=== PATIENT | female | born 1995 | race African-American/Black ===

== ENCOUNTER 2017-11-11 09:46 | Emergency (ER) | payer MEDICAID, OTHER ==
[2017-11-11] MEDS ORDERED: Ondansetron ODT 4 MG TAB ONE (10:12)
[2017-11-11 11:02] LABS: Bilirubin Negative (Negative); Blood, Urine Negative (Negative); Clarity CLEAR (Clear); Glucose, Urine (Dipstick) Negative (Negative); Leukocyte Small (Negative); Nitrite Negative (Negative); Protein, Urine (Dipstick) Trace mg/dL (Neg-Trace)
[2017-11-11 11:05] LABS: Bacteria/HPF None Seen HPF (None Seen); Pathc Cast-AUWi Flag 0.87 (0-2.49)
[2017-11-11 11:21] LABS: Hyaline Casts/LPF 0-3 HYALINE CAST LPF (0-3 Hyaline)
[2017-11-11 11:22] LABS: Renal Epithelial None Seen HPF (0-3); Transitional Epithelial NONE SEEN HPF (0-3)
[2017-11-11 11:50] LABS: #Eosinphils 0.2 thou/uL (0.0-0.7); Mean Corpuscular HGB CONC 34.7 g/dL (32.0-36.0); Mean Corpuscular Hemoglobin 34.6 pg (27.0-31.0); Mean Platelet Volume 8.2 fL (7.4-10.4)
[2017-11-11 12:02] LABS: #Lymphocytes 1.1 thou/uL (1.20-3.40); #Monocytes 0.6 thou/uL (0.11-0.59); #Neutrophils 4.3 thou/uL (1.40-6.50); %Basophils 0.7 % (0.0-1.0); %Eosinophils 2.7 % (0.0-10.0); %Neutrophils 69.7 % (42.0-75.0); Hemoglobin 12.8 g/dL (12.0-16.0); Mean Corpuscular Volume 99.7 fL (78.0-98.0); Platelet Count 242 thou/uL (130-400); Red Blood Cell (RBC) Count 3.68 mill/uL (4.20-5.40); White Blood Cell (WBC) Count 6.2 thou/uL (4.8-10.8)
--- NOTE | 2017-11-11 13:42 | ULT ---
TRANSABDOMINAL AND TRANSVAGINAL PELVIC ULTRASOUND WITH DOPPLER: DATE: 11/11/17. PROVIDED CLINICAL HISTORY: Pelvic pain. FINDINGS: The uterus measures about 8.7 x 6 x 7.1 cm and demonstrates a single live intrauterine gestation, 8 w eeks 0 days by crown-rump length. heart tones of 162 b.p.m. documented. There is no evidence for perigestational hemorrhage. Right and left ovaries demonstrate no significant abnormality. Color Doppler and spectral analysis o f the ovarian waveforms demonstrate normal flow bilaterally. There is no evidence for free pelvic fl uid. IMPRESSION: Single live intrauterine gestation. POS: [facility] [place]
== END 2017-11-11 13:49 | disposition home or self-care (01) ==
LOC: ERS 09:46
DX: O21.9 Vomiting of pregnancy, unspecified (principal); F32.9 Major depressive disorder, single episode, unspecified; F17.210 Nicotine dependence, cigarettes, uncomplicated; Z3A.01 Less than 8 weeks gestation of pregnancy
CPT/HCPCS: 36415; 76856; 81001; 85025; 86900; 86901; 87086; 93976; 96360; 96361; Q0162

== ENCOUNTER 2017-12-05 09:21 | Emergency (ER) | payer MEDICAID ==
[2017-12-05 10:21] LABS: #Eosinphils 0.1 thou/uL (0.0-0.7); #Lymphocytes 0.5 thou/uL (1.20-3.40); #Monocytes 0.3 thou/uL (0.11-0.59); #Neutrophils 2.9 thou/uL (1.40-6.50); %Basophils 0.5 % (0.0-1.0); %Eosinophils 2.1 % (0.0-10.0); %Lymphocytes 13.7 % (21.0-51.0); %Neutrophils 76.8 % (42.0-75.0); Hemoglobin 15.1 g/dL (12.0-16.0); Mean Corpuscular Hemoglobin 33.4 pg (27.0-31.0); Mean Corpuscular Volume 98.3 fL (78.0-98.0); Mean Platelet Volume 7.5 fL (7.4-10.4); Platelet Count 244 thou/uL (130-400); RBC Distribution Width 10.8 % (11.5-14.5); Red Blood Cell (RBC) Count 4.53 mill/uL (4.20-5.40); White Blood Cell (WBC) Count 3.8 thou/uL (4.8-10.8)
[2017-12-05] MEDS ORDERED: Ondansetron HCl/PF 4 MG/2 ML Vial ONE (10:23)
[2017-12-05 10:40] LABS: ALT (SGPT) 27 U/L (8-55); AST (SGOT) 25 U/L (5-34); Albumin 4.9 g/dL (3.5-5.0); Alkaline Phosphatase 50 U/L (40-150); Anion Gap 14 mmol/L (10-20); BUN (Urea Nitrogen) 11 mg/dL (7.0-18.7); Bilirubin, Total 0.8 mg/dL (0.2-1.2); Calc. Creatinine Clearance 0 mL/min (70-130); Calcium 10.1 mg/dL (7.8-10.44); Carbon Dioxide 24 mmol/L (22-29); Chloride 100 mmol/L (98-107); Estimated GFR-MDRD Greater than 90; Globulin 4.2 g/dL (2.4-3.5); Glucose 89 mg/dL (70-105); Potassium 3.6 mmol/L (3.5-5.1); Protein, Total 9.1 g/dL (6.0-8.3); Sodium 134 mmol/L (136-145)
[2017-12-05 12:31] LABS: Bilirubin Negative (Negative); Blood, Urine Negative (Negative); Clarity CLEAR (Clear); Glucose, Urine (Dipstick) Negative (Negative); Leukocyte Small (Negative); Nitrite Negative (Negative); Protein, Urine (Dipstick) Negative (Neg-Trace); Specific Gravity, Urine 1.028 (1.002-1.036); pH, Urine 5.5 (5.0-9.0)
[2017-12-05 12:33] LABS: Bacteria/HPF None Seen HPF (None Seen); Hyaline Casts/LPF 7-10 HYALINE CAST LPF (0-3 Hyaline)
== END 2017-12-05 13:30 | disposition home or self-care (01) ==
LOC: ERS 09:21
DX: O21.9 Vomiting of pregnancy, unspecified (principal); O99.89 Other specified diseases and conditions complicating pregnancy, childbirth and the puerperium; R55 Syncope and collapse; O99.331 Smoking (tobacco) complicating pregnancy, first trimester; O99.341 Other mental disorders complicating pregnancy, first trimester; Z3A.11 11 weeks gestation of pregnancy
CPT/HCPCS: 80053; 81003; 81015; 85025; 96361; 96374; J2405

== ENCOUNTER 2018-06-06 09:10 | Day surgery (SDC) | payer OTHER ==
--- NOTE | 2018-06-06 09:46 | PDOC.LDHP ---
Labor and Delivery H&P HPI: HPI: 23 yo at 37.2 wks presents for eval of pelvic pressure, back pain. PCP is Dr. Doherty. Patients states she has been having sharp low back pain isolated to the center of her back for about 3 days. Today she started to have some supra -pubic pressure which brought her in. She denies feeling contractions, the pain is constant. Made worse with standing up and moving. No burning or blood with urination. Mild pink discharge, denies vaginal itching. Did have positive chlamydia earlier in the , states it was treated. Patient denies ROM. Does feel baby moving. records are unavailable at this time, hx taken from patient History: OB hx: x2 at term, uncomplicated [employer] HX: + pap in 2016, repeat was NILM PMH: depression PSH: negative All: NKDA Meds: PNV Soc Hx: denies alcohol, drugs, occasionally smokes cigars Fm Hx: HTN in mom REVIEW OF SYSTEMS: Gen: no fever, chills, or sweats Neuro: no numbness/tingling, no weakness, denies headache Eyes: no visual changes ENT: no hearing changes, no sore throat, no runny nose Resp: no cough, no SOB, no wheeze Card: denies chest pain, no palpitations GI: no N/V/D, see hpi : no dysuria, no hematuria, MSK: no myalgias, no joint pain/stiffness Heme: no easy bruising/bleeding Skin: no rash, no erythema PHYSICAL EXAMINATION: General: NAD, alert and oriented x3 HEENT: EOMI, normal sclera, oropharynx without erythema or exudate Neck: Supple. Full ROM. Heart/Cardiovascular System: RRR, Cap refill < 3 seconds, no rub, no murmur Lungs/Respiratory System: clear to auscultation bilaterally. No increased work of breathing. Room air. Abdomen/Gastro-Intestinal System: normal bowel sounds, Gravid Extremeties: Warm extremities. No cyanosis or edema. No CVA tenderness. + suprapubic tenderness Neuro: No gross deficits appreciated. CN 2-12 grossly intact Psychiatry: Awake, Alert and cooperative with exam Skin/ Integumentory: No lesions, rashes, or ulcers Musculoskeletal: Full ROM [employer]: no external lesions SVE: 4/50/-2 at 1010 Allergies/Adverse Reactions: Allergies Allergy/AdvReac Type Severity Reaction Status Date / Time No Known Allergies Allergy Verified 06/06/18 09:56 - Physical Exam FHT: category 1 - Plan -: A/P: 23 yo at 37.2 wks by stated LESLIE of 06/25/18 # Labor r/o - 2cm in office a week ago, /2 today - not feeling cxns - will monitor and re-check - Cat 1 strip: accels present, no decels, cxns irregular, moderate variability # Suprapubic pressure - check UA Addendum - Attending - Attending Attestation Date/Time: 06/06/18 1210 I personally evaluated the patient and discussed the management with Dr. Khan. I agree with the History, Examination, Assessment and Plan documented above.
[2018-06-06 09:55] VITALS: BP 105/66; TEMP 98.3; BMI 26.4
[2018-06-06] MEDS ORDERED: Acetaminophen 325 MG TAB PO SCH (10:15)
[2018-06-06 11:10] LABS: Bilirubin Negative (Negative); Blood, Urine Negative (Negative); Clarity CLEAR (Clear); Glucose, Urine (Dipstick) Negative (Negative); Leukocyte Moderate (Negative); Nitrite Negative (Negative); Protein, Urine (Dipstick) Negative (Neg-Trace); Specific Gravity, Urine 1.018 (1.002-1.036); pH, Urine 6.5 (5.0-9.0)
[2018-06-06 11:13] LABS: Bacteria/HPF None Seen HPF (None Seen); Hyaline Casts/LPF 0-3 HYALINE CAST LPF (0-3 Hyaline); Pathc Cast-AUWi Flag 0.54 (0-2.49); RBC/HPF 0-3 HPF (0-3); Squamous Epithelial 0-3 HPF (0-3)
[2018-06-06 11:15] LABS: Urine Culture Reflex Yes Yes
--- NOTE | 2018-06-06 12:09 | PDOC.EVN ---
Event Note - Event Note Event Note: Rechecked patient no change from 2 hours ago patient lives 20 minutes away and feels comfortable to go home discussed reasons to return to triage Patient's back pain is improved with tylenol Contractions are irregular and not getting stronger Will send patient home to f/u outpt or return to triage as needed. Addendum - Attending - Attending Attestation Date/Time: 06/06/18 1212 I personally evaluated the patient and discussed the management with Dr. Khan. I agree with the History, Examination, Assessment and Plan documented above See my additional note..
--- NOTE | 2018-06-06 12:10 | PDOC.EVN ---
Event Note - Event Note Event Note: Exam repeated. SVE by me is 3/thick, vtx blt. FHTs are reassuring, UCs are irregular. UA is unremarkable. Will sent home with labor precaution, lives 20 mins from L&D.
== END 2018-06-06 12:10 | disposition home or self-care (01) ==
LOC: L&D/OP 09:10
PROVIDERS: ATTEND Obstetrics & Gynecology
DX: O99.89 Other specified diseases and conditions complicating pregnancy, childbirth and the puerperium (principal); R10.2 Pelvic and perineal pain; M54.5 Low back pain; O47.1 False labor at or after 37 completed weeks of gestation; Z3A.37 37 weeks gestation of pregnancy; Z79.899 Other long term (current) drug therapy
CPT/HCPCS: 81001; 87086; 99283

== ENCOUNTER 2018-06-07 20:32 | Day surgery (SDC) | payer OTHER ==
[2018-06-07 21:14] VITALS: BMI 26.4
[2018-06-07 21:51] LABS: #Eosinphils 0.4 thou/uL (0.0-0.7); #Lymphocytes 1.5 thou/uL (1.20-3.40); #Monocytes 0.7 thou/uL (0.11-0.59); #Neutrophils 5.5 thou/uL (1.40-6.50); %Basophils 0.4 % (0.0-1.0); %Eosinophils 4.6 % (0.0-10.0); %Lymphocytes 18.3 % (21.0-51.0); %Monocytes 8.7 % (0.0-10.0); Hemoglobin 11.2 g/dL (12.0-16.0); Mean Corpuscular HGB CONC 33.9 g/dL (32.0-36.0); Mean Corpuscular Hemoglobin 34.4 pg (27.0-31.0); Mean Platelet Volume 8.7 fL (7.4-10.4); Platelet Count 161 thou/uL (130-400); RBC Distribution Width 11.3 % (11.5-14.5); Red Blood Cell (RBC) Count 3.26 mill/uL (4.20-5.40); White Blood Cell (WBC) Count 8.2 thou/uL (4.8-10.8)
[2018-06-07 22:12] LABS: ALT (SGPT) 9 U/L (8-55); AST (SGOT) 18 U/L (5-34); Albumin 3.2 g/dL (3.5-5.0); Alkaline Phosphatase 177 U/L (40-150); Anion Gap 12 mmol/L (10-20); BUN (Urea Nitrogen) 6 mg/dL (7.0-18.7); Bilirubin, Total 0.5 mg/dL (0.2-1.2); Calc. Creatinine Clearance 124 mL/min (70-130); Carbon Dioxide 22 mmol/L (22-29); Chloride 108 mmol/L (98-107); Estimated GFR-MDRD Greater than 90; Globulin 3.4 g/dL (2.4-3.5); Glucose 87 mg/dL (70-105); Potassium 3.6 mmol/L (3.5-5.1); Protein, Total 6.6 g/dL (6.0-8.3); Sodium 138 mmol/L (136-145)
[2018-06-07 22:44] LABS: Bilirubin Negative (Negative); Blood, Urine Negative (Negative); Clarity CLOUDY (Clear); Glucose, Urine (Dipstick) Negative (Negative); Leukocyte Large (Negative); Nitrite Negative (Negative); Protein, Urine (Dipstick) Negative (Neg-Trace); pH, Urine 6.5 (5.0-9.0)
[2018-06-07 22:47] LABS: Bacteria/HPF None Seen HPF (None Seen); Hyaline Casts/LPF 7-10 HYALINE CAST LPF (0-3 Hyaline); Pathc Cast-AUWi Flag 0.54 (0-2.49); Squamous Epithelial 0-3 HPF (0-3); Yeast-AUWi Flag 8.5 (0-25.0)
--- NOTE | 2018-06-08 04:49 | SS ---
DATE OF ADMISSION: 06/07/2018 DATE OF DISCHARGE: 06/07/2018 REGULAR PHYSICIAN: Bijan Doherty MD EVALUATING PHYSICIAN: Malachi Jeong MD CHIEF COMPLAINT: Headache at home with pelvic pressure and pain. HISTORY OF PRESENT ILLNESS: Ms. Duque is a 23-year-old black, G3, P 2-0-0-2, now at 37 weeks, who presents complaining of intermittent headache at home with pelvic pressure and pelvic discomfort. She denies ruptured membranes or vaginal discharge. Her care has been with Dr. Doherty and has been without complications. PAST OBSTETRICAL HISTORY: Includes two uncomplicated vaginal delivery at term. She states she has never had preeclampsia. PAST MEDICAL HISTORY: Anxiety. PAST SURGICAL HISTORY: None. CURRENT MEDICATIONS: vitamins. ALLERGIES: NO KNOWN ALLERGIES. SOCIAL HISTORY: Denies tobacco, alcohol, or drug use. FAMILY HISTORY: Unremarkable. REVIEW OF SYSTEMS: Denies nausea, vomiting, fever, chills, ruptured membranes, vaginal bleeding, or change in bowel or bladder habits. PHYSICAL EXAMINATION: VITAL SIGNS: In triage, her blood pressures were 126/72 and 111/59. The remainder of her vital signs were stable. She is afebrile. GENERAL: She is pleasant and in no acute distress. ABDOMEN: Soft, nontender, and gravid. heart rate tracing is stable with no decelerations. Intermittent contractions are seen. PELVIC: Shows the cervix to be 3 to 4 cm dilated, thick with the presenting vertex high. LABORATORY DATA: White count 8.2, hemoglobin and hematocrit 11.2 and 33.1 respectively, and platelet count is 161,000. Chemistries; creatinine 0.68, total bilirubin 0.5, AST and ALT are 18 and 9 respectively. Urinalysis shows it to be cloudy with a specific gravity of 1.020 with negative protein, but with large leukocyte esterase. ASSESSMENT: 1. 37-week intrauterine . 2. No evidence of active labor at this time, cervix remains unchanged. 3. Possible urinary tract infection. 4. No evidence of PIH PLAN: The patient will be discharged to home. Labor precautions were again reviewed with her. I did give her prescription for Keflex 500 mg one p.o. 4 times a day for a week. She states she does have an appointment with Dr. Doherty later this week. She was sent home in good condition. Job ID: [id number] [facility]
== END 2018-06-07 23:31 | disposition home or self-care (01) ==
LOC: L&D/OP 20:32
PROVIDERS: ATTEND Obstetrics & Gynecology
DX: O99.89 Other specified diseases and conditions complicating pregnancy, childbirth and the puerperium (principal); R10.9 Unspecified abdominal pain; R51 Headache; O99.343 Other mental disorders complicating pregnancy, third trimester; F41.9 Anxiety disorder, unspecified; Z3A.37 37 weeks gestation of pregnancy
CPT/HCPCS: 36415; 80053; 81003; 81015; 85025; 87086; 99284